=== PATIENT | male | born 1970 | race Caucasian/White ===

== ENCOUNTER 2016-07-27 15:07 | Emergency (ER) | payer OTHER ==
--- NOTE | ~2016-07-27 | ER ---
PATIENT'S NAME: DONI BRANNON [facility] AGE: 45 Y [address] ROOM: [place] [address] LOCATION: [facility] ADMIT DATE: 07/27/2016 ER/Outpatient Report DISCHARGE DATE: 07/27/2016 FAMILY PHYSICIAN: Shiv Eldridge MD ATTENDING PHYSICIAN: Fitz Cardona Admission date and time documented in the medical record. I saw the patient at 1515 hours. CHIEF COMPLAINT: Left temporal headache, left facial numbness. HISTORY OF PRESENT ILLNESS: The patient is a 45-year-old male, who has had a 2-day history of intermittent left temporal headache and persistent numbness in his left face, especially around his left upper lip, left naris, extending up into his left cheek. No fever, chills, sweats, coughs, colds, flus. No fall or trauma. No eyes, ears, nose, throat, neck, or spine pain. No lightheadedness, dizziness. No chest pain, shortness of breath. No abdominal pain, nausea, vomiting, diarrhea, urinary frequency, urgency, or dysuria. No joint or muscle swelling, redness, or pain. No skin eruptions or rash. No history of neuro changes with TIA, CVA, seizure disorder. No endocrine problems. Does have a history of depression and anxiety but no psychosis. HOME MEDICATIONS: 1. Xarelto. 2. Lisinopril. ALLERGIES: NONE. SOCIAL HISTORY: Nonsmoker, nondrinker. SIGNIFICANT PAST MEDICAL HISTORY: Gastroesophageal reflux, hypertension, dyslipidemia, Factor V Leiden deficiency, chronic anticoagulation with Xarelto, depression, anxiety. OPERATIONS: None. REVIEW OF SYSTEMS: All systems reviewed by me are negative with the exception of those discussed in the history of present illness. PATIENT'S NAME: VINCENT BRANNONALL Rj [facility] AGE: 45 Y [address] ROOM: [place] [address] LOCATION: [facility] ADMIT DATE: 07/27/2016 ER/Outpatient Report DISCHARGE DATE: 07/27/2016 FAMILY PHYSICIAN: Shiv Eldridge MD ATTENDING PHYSICIAN: Fitz Cardona PHYSICAL EXAMINATION: VITAL SIGNS: Temperature 97.3 tympanic, pulse 94 and regular, respirations 16, blood pressure 140/82, O2 saturation on room air is 97%. HEAD: Normocephalic. No abrasion, contusion, laceration, swelling of the scalp or face. EYES: Extraocular muscles intact. PERRL. Sclerae and conjunctivae are clear, nonicteric. EARS, NOSE, THROAT: Clear. Mucous membranes moist. Teeth and jaw intact. NECK: No nuchal rigidity. No thyromegaly or cervical adenopathy. No tenderness. Range of motion full. SPINE: Nontender. No deformity. LUNGS: Clear. No rales, rhonchi, or wheezes. HEART: Regular. Pulses are palpable. ABDOMEN: Soft, nondistended, nontender. Good bowel tones. No organomegaly or abnormal mass palpable. EXTREMITIES: No peripheral edema, cyanosis, or deformity. NEURO: NIH Stroke Scale is 0 to 1. He has no evidence of Rodriguez's palsy. He has questionable deficits sensory of left face but no motor deficits. SKIN: Clear. No skin eruptions or rash. LABORATORY DATA AND X-RAYS: MRI scan of the brain was negative for tumor, stroke, ischemic area. Scan was read by Radiology, see dictated transcribed report. Laboratory: White count was 18,400, 86 segs, 6 lymphs, 8 monos, hemoglobin was 16.9, hematocrit 49.6, platelet count was 218,000. CMS was normal except an elevated glucose 116. CPK was 227, CRP was 16.9. IMPRESSION: 1. Left temporal headache, intermittent with some left mid facial numbness, paresthesia. There are no motor deficits of the cranial nerves or extremities. Etiology uncertain. The patient did have an elevated white count of unknown etiology or reason along with an elevated CRP. 2. History of hypertension. 3. History of dyslipidemia. 4. History of anxiety, depression. 5. History of Factor V Leiden deficiency with chronic anticoagulation with Xarelto. PLAN: I did discuss this patient with his personal physician, Dr. Shiv Eldridge. We will dismiss the patient home. Observation. Activity as tolerated. Continue present home medications and care. [place] 5/325 as needed for pain. Follow up with Dr. Eldridge tomorrow for followup exam and repeat CBC. Discussion ensued with the patient and his concerning my findings and recommendations, they PATIENT'S NAME: DONI BRANNNO [facility] AGE: 45 Y [address] ROOM: [place], [place] [address] LOCATION: [facility] ADMIT DATE: 07/27/2016 ER/Outpatient Report DISCHARGE DATE: 07/27/2016 FAMILY PHYSICIAN: Shiv Eldridge MD ATTENDING PHYSICIAN: Fitz Cardona understand. MD HELEN OWENS/modl /[id number] d: 07/27/162229 t: 07/28/16 0608, OUTPATIENT REPORT
[2016-07-27 15:54] LABS: BASOPHIL % 0.1 %; HEMATOCRIT 49.6 % (37.0-53.0); HEMOGLOBIN 16.9 g/dL (12.0-17.0); IMMATURE GRANULOCYTE # 0.1 K/uL (0.0-0.3); IMMATURE GRANULOCYTE % 0.5 %; LYMPHOCYTE % 5.5 %; MCHC 34.1 gm/dL (32.0-36.5); MCV 88.1 fl (83.0-98.0); MONOCYTE # 1.5 K/uL (0.0-1.0); MONOCYTE % 8.1 %; MPV 9.8 fl (9.4-12.4); NEUTROPHIL # (ANC) 15.8 K/uL (1.4-9.0); NEUTROPHIL % 85.8 %; NRBC % 0 /100WBC (0-0.00); PLATELET COUNT 218 K/uL (150-450); RBC 5.63 M/uL (4.00-6.00); RDW-CV 12.9 % (11.9-14.6); WBC 18.4 K/uL (4.0-11.0)
[2016-07-27 16:15] LABS: ALBUMIN 3.3 gm/dL (3.5-5.0); ALK PHOS 57 IU/L (33-138); ALT 39 IU/L (12-78); AST 19 IU/L (10-40); BLOOD UREA NITROGEN 15 mg/dL (6-24); CHLORIDE 104 mMol/L (96-110); CO2 25 mMol/L (22-32); CPK 227 IU/L (35-332); ESTIMATED GFR (MDRD EQUATION) > 60; SODIUM 137 mMol/L (135-145); TOTAL BILIRUBIN 0.3 mg/dL (0.0-1.5); TOTAL PROTEIN 7.5 g/dL (6.0-8.4)
== END 2016-07-27 16:55 | disposition disaster alternative care site (69) ==
LOC: GMED 15:07
PROVIDERS: Emergency Medicine
DX: R51 Headache (principal); R20.0 Anesthesia of skin; K21.9 Gastro-esophageal reflux disease without esophagitis; I10 Essential (primary) hypertension; E78.5 Hyperlipidemia, unspecified; D68.51 Activated protein C resistance; F32.9 Major depressive disorder, single episode, unspecified; F41.9 Anxiety disorder, unspecified; Z79.01 Long term (current) use of anticoagulants; Z79.899 Other long term (current) drug therapy

== ENCOUNTER 2016-07-30 14:57 | Inpatient (IN) | payer OTHER ==
[~2016-07-30] VITALS: Ht 182.9 cm; Wt 94.2 kg
--- NOTE | ~2016-07-30 | CON ---
PATIENT'S NAME: DONI BRANNON [facility] AGE: 45 Y [address] ROOM: [place] [address] [place] [facility] [place] DATE: 07/30/2016 Consultation DISCHARGE DATE: FAMILY PHYSICIAN: Shiv Eldridge MD ATTENDING PHYSICIAN: Jose J Zimmerman REFERRING PHYSICIAN: TIARA TUTTLE MD CHIEF COMPLAINT: Left facial swelling, numbness, and pain. HISTORY OF PRESENT ILLNESS: The patient is a pleasant 45-year-old male who is admitted today by Dr. Zimmerman after a 6-day history of progressive numbness, pain, and swelling in the left face. The patient states that this began last Tuesday with numbness of his left lower lip ending at the midline. This progressed the numbness that included the entire left jawline, left cheek, and extended to his left ear. This has not involved his forehead. Thereafter, progressed to further pain, burning sensation, as well as swelling which included the area around the left jaw. He was evaluated in an Emergency Department in [place], where a noncontrasted CT was negative. Subsequent evaluations included Oral Maxillofacial consult which was normal with normal dental x-rays and MRI of the brain which was negative as well as laboratory studies which revealed elevated inflammatory markers and a white blood cell count of 16. The patient denies similar history nor any recent infections or illness. No trauma to the head and neck. No history of ear, nose, and throat conditions. He did travel to [place] in May for five days, but there was no travel into the [facility] country or on any boats. He denies any recent bites or other hot exposures. At this time, his main complaint is difficulty with mouth opening, trouble swallowing, pain in his mouth and throat as well as swelling around his jaw. PAST MEDICAL HISTORY: Gastroesophageal reflux, hypertension, dyslipidemia, Factor V Leiden deficiency, chronic anticoagulation, depression, and anxiety. MEDICATIONS: Xarelto and lisinopril. ALLERGIES: NONE. SOCIAL HISTORY: Nonsmoker, nondrinker. FAMILY HISTORY: Negative for chronic ear, nose, and throat conditions. PATIENT'S NAME: DONI BRANNON [facility] AGE: 45 Y [address] ROOM: [place] [address] [place] [facility] [place] DATE: 07/30/2016 Consultation DISCHARGE DATE: FAMILY PHYSICIAN: Shiv Eldridge MD ATTENDING PHYSICIAN: Jose J Zimmerman REVIEW OF SYSTEMS: A 10-point review of systems was performed, is negative except as per the HPI. PHYSICAL EXAMINATION: VITAL SIGNS: Temperature 97.8, pulse 85, respiratory rate 16, blood pressure 143/92, 96% on room air. GENERAL: Well-appearing male, in no acute distress, lying supine in bed. He is alert and cooperative. HEENT: Scalp unremarkable. Eyes: Extraocular movements are intact. Pupils are equal, round, and reactive to light. Face: Slight asymmetry with swelling around the left jaw line. Slight asymmetry to the lower lip with smiling. Ears: Auditory canals are clear. TMs are unremarkable. Nose: Good nasal air flow. No mucosal lesions. ORAL CAVITY: Mucous membranes are moist. There is limited mouth opening. Tongue is midline and mobile. Floor of mouth bilaterally is unremarkable. Oropharynx is unremarkable. The left oral vestibule does reveal an area of edema, induration, and erythema. Palpation of this area with pressure reveals expressible yellow purulence around teeth numbers 22 and 23. This was cultured. NECK: No palpable lymphadenopathy or masses. There is a slight amount of edema in the submandibular triangle on the left. No skin lesions. NEURO: Cranial nerves 2 through 12 are intact with the exception of numbness and pain in the V3 and V2 distributions on the left. RADIOLOGY: MRI of the brain was reviewed and is negative. CT scan of the face with contrast is pending. ASSESSMENT: Left odontogenic abscess in the left oral vestibule. PLAN: Culture was obtained and will be followed up. We will also follow up the CT results. We will plan on an oral incision and drainage with possible tooth extraction. Tomorrow morning, he will be n.p.o. after midnight and anticoagulation held. He will continue on clindamycin. We will add dexamethasone. Thank very much for this kind referral. Do not hesitate to call with questions. TIARA TUTTLE MD PATIENT'S NAME: DONI BRANNON [facility] AGE: 45 Y [address] ROOM: [id number] [place], [place] [address] [place] [facility] [place]MIT DATE: 07/30/2016 Consultation DISCHARGE DATE: FAMILY PHYSICIAN: Shiv Eldridge MD ATTENDING PHYSICIAN: Jose J Zimmerman/rajan /[id number] CC: MD Jeff Sy MD/DDS MD Jose J Castillo MD d: 07/31/16 0050 t: 08/12/16 0720, CONSULTATION REPORT
--- NOTE | ~2016-07-30 | DS ---
PATIENT'S NAME: DONI BRANNON [facility] AGE: 45 Y [address] ROOM: [place] [address] LOCATION: [facility] [place] ADMIT DATE: 07/30/2016 Discharge Summary DISCHARGE DATE: 07/30/2016 FAMILY PHYSICIAN: Shiv Eldridge MD ATTENDING PHYSICIAN: Ramsey Pineda DISCHARGE DIAGNOSES: 1. Abscess of jaw, which grew out Streptococcus parasanguinis susceptible to levofloxacin. 2. Insomnia. 3. Seasonal allergies. 4. Gastroesophageal reflux disease. 5. Arrhythmia. 6. History of deep vein thrombosis with factor V Leiden. PROCEDURES DURING ADMISSION: Debridement of jaw per Dr. Esquivel ENT. CONSULTS DURING ADMISSION: ENT. HOSPITAL COURSE: The patient is a 45-year-old male who presented to the clinic with a swollen jaw and had several imaging studies done prior. The patient was found to have an elevated white blood cell count and a CT with contrast showed he did have an abscess in his left jaw, which was causing him to have numbness and tingling in his chin. The patient was taken back on the 30 of July and had a debridement performed. The patient had packings and wound cares per ENT throughout his hospital stay and he grew out wound culture with a bacteria sensitive to Levaquin and vancomycin. The patient was started on both vancomycin and Levaquin and then switched to just Levaquin. Upon day of discharge, the patient's pain was tolerable with orals, but during the hospital stay, he required a [employer]. DISCHARGE CONDITION: Stable. DISPOSITION: Home. DISCHARGE MEDICATIONS: Please see list. DISCHARGE INSTRUCTIONS: The patient is to follow up with Dr. Eldridge in approximately 1 week, with ENT as directed. He is taking Levaquin for approximately 10 more days and work to keep his pain under control. RAMSEY PINEDA MD PATIENT'S NAME: DONI BRANNON [facility] AGE: 45 Y [address] ROOM: [place] [address] LOCATION: [facility] [place] ADMIT DATE: 07/30/2016 Discharge Summary DISCHARGE DATE: 07/30/2016 FAMILY PHYSICIAN: Shiv Eldridge MD ATTENDING PHYSICIAN: Ramsey PinedaG/cecilel /[id number] d: 08/05/16 0905 t: 08/09/16 1331, DISCHARGE SUMMARY
--- NOTE | ~2016-07-30 | OR ---
PATIENT'S NAME: DONI BRANNON [facility] AGE: 45 Y [address] ROOM: [place] [address] [place] [facility] [place]: 07/30/2016 OR/Procedure Report DISCHARGE DATE: FAMILY PHYSICIAN: Shiv Eldridge MD ATTENDING PHYSICIAN: Jose J Zimmerman SURGEON: Michael Esquivel MD CREDIT COLLECTION SPECIALIST: None. DATE OF PROCEDURE: 07/30/2016 PREOPERATIVE DIAGNOSIS: Left oral abscess. POSTOPERATIVE DIAGNOSES: 1. Left oral abscess. 2. Partially necrotic tooth #21. PROCEDURES: 1. Incision and drainage, left distal abscess. 2. Extraction of tooth #21. ANESTHESIA: General endotracheal. COMPLICATION: None. BLOOD LOSS: 5 mL. FINDINGS: 1. Partially necrotic tooth #21. 2. Small abscess pocket surrounding the mental nerve foramen on the left. INDICATIONS: The patient is a 45-year-old male, who over the last week had developed numbness as well as swelling, pain, and tingling of the left face beginning with his left lip. He was found on exam to have obvious purulence expressible around tooth #21 and therefore he was brought to the operating room for tooth extraction and incision and drainage of his abscess pocket. DESCRIPTION OF PROCEDURE: The patient was brought to the operative suite, placed on the table in supine position. All pressure points were padded. Time-out was performed correctly identifying the patient and procedure. General endotracheal anesthesia was initiated. The patient was prepped and draped in routine fashion. The oral cavity was exposed. An injection of 1% lidocaine with epinephrine was performed around the abscess along the mucosa and gingiva surrounding teeth numbers 19 to 22. Thereafter, a #9 dental elevator was used to probe around tooth #21, which appeared infected. There was easy slide down into the abscess pocket, which was fully opened with incision and expressed. This was probed and found to be around the mental PATIENT'S NAME: DONI BRANNON [facility] AGE: 45 Y [address] ROOM: [place] [address] [place] [facility] [place]: 07/30/2016 OR/Procedure Report DISCHARGE DATE: FAMILY PHYSICIAN: Shiv Eldridge MD ATTENDING PHYSICIAN: Jose J Zimmerman nerve foramen 360 degrees. This entire area was irrigated thoroughly and cleansed. Tooth #21 was then extracted. This was begun with sepsis, but the tooth snapped in half easily due to the necrotic portion of the enamel. Thereafter, the root was extracted with a combination of sharp instrumentation and a dental drill on the buccal surface. The root was completely extracted, irrigated thoroughly, and 1/4-inch iodoform packing was placed into the abscess cavity. This concluded the procedure. The patient was returned to the care of Anesthesia for extubation and returned to recovery in stable condition. MD SETH AYERS/rajan /[id number] d: 07/31/16 1006 t: 08/12/16 0723, OPERATIVE SUMMARY
[2016-07-30] MEDS ORDERED: XARELTO20 MG PO (16:14)
[2016-07-30] MEDS ORDERED: OMEPRAZOLE40 MG PO (16:14)
[2016-07-30] MEDS ORDERED: PRINIVIL (ZESTRI5 MG PO (16:14)
[2016-07-30] MEDS ORDERED: AMBIEN10 MG PO (16:15)
[2016-07-30] MEDS ORDERED: ZYRTEC-D TABLE1 EACH PO (16:15)
[2016-07-30] MEDS ORDERED: ADVIL200 MG PO (16:16)
[2016-07-30] MEDS ORDERED: TYLENOL ARTHRI650 MG PO (16:16)
[2016-07-30] MEDS ORDERED: CLEOCIN150 MG PO (16:17)
[2016-07-30] MEDS ORDERED: VALTREX1000 MG PO (16:18)
[2016-08-01 05:45] LABS: HEMOGLOBIN 15.7 g/dL (12.0-17.0); MCH 29.5 pg (27.0-34.0); MCHC 34.1 gm/dL (32.0-36.5); MCV 86.5 fl (83.0-98.0); MPV 9.3 fl (9.4-12.4); RBC 5.32 M/uL (4.00-6.00); RDW-CV 12.9 % (11.9-14.6)
[2016-08-01 05:46] LABS: PLATELET COUNT 320 K/uL (150-450); WBC 26.4 K/uL (4.0-11.0)
[2016-08-01 05:56] LABS: ANION GAP 12.6 (10.0-19.0); BLOOD UREA NITROGEN 21 mg/dL (6-24); CALCIUM 8.7 mg/dL (8.5-10.5); CHLORIDE 107 mMol/L (96-110); CO2 26 mMol/L (22-32); CREATININE 0.9 mg/dL (0.6-1.3); ESTIMATED GFR (MDRD EQUATION) > 60; POTASSIUM 4.6 mMol/L (3.7-5.1); SODIUM 141 mMol/L (135-145)
[2016-08-01 06:06] LABS: BANDED NEUTROPHIL # 1.8 K/uL (0.0-0.1); BANDED NEUTROPHILS % 7 %; LYMPHOCYTE # 2.1 K/uL (0.8-4.0); LYMPHOCYTE % 8 %; MONOCYTE # 0.5 K/uL (0.0-1.0); SEGMENTED NEUTROPHIL # 21.1 K/uL (1.4-9.0); SEGMENTED NEUTROPHIL % 80 %
[2016-08-05] MEDS ORDERED: PERIDEX15 ML PO (09:00)
[2016-08-05] MEDS ORDERED: NEURONTIN100 MG PO (09:01)
[2016-08-05] MEDS ORDERED: PERCOCET 7.5-31 EACH PO (09:04)
[2016-08-05] MEDS ORDERED: LEVAQUIN750 MG PO (09:05)
== END 2016-08-05 11:30 | disposition disaster alternative care site (69) | DRG 137 ==
LOC: GMSU 14:57
PROVIDERS: ADMIT Family Medicine
DX: M27.2 Inflammatory conditions of jaws (principal); K12.2 Cellulitis and abscess of mouth; D68.51 Activated protein C resistance; K21.9 Gastro-esophageal reflux disease without esophagitis; K04.1 Necrosis of pulp
CPT/HCPCS: J1100; J1956; J2270; J2405; J3010; J3370; J7030; J7040; J7050; J7120